=== PATIENT | male | born 1985 | race Caucasian/White ===

== ENCOUNTER 2017-03-21 01:07 | Emergency (ER) | payer OTHER | END 2017-03-21 04:45 | disposition home or self-care (01) | LOC: ER 01:07 | DX: M27.3 Alveolitis of jaws (principal); K08.409 Partial loss of teeth, unspecified cause, unspecified class; Q60.2 Renal agenesis, unspecified; Z88.0 Allergy status to penicillin | CPT/HCPCS: 99070; 99282 ==

== ENCOUNTER 2017-04-08 07:08 | Emergency (ER) | payer OTHER ==
[2017-04-08 07:38] LABS: BLOOD UREA NITROGEN 10 mg/dL (7-18); CALCIUM 9.5 mg/dL (8.7-10.7); CARBON DIOXIDE 23 mmol/L (21-32); CREATININE 0.9 mg/dL (0.6-1.3); GLUCOSE,RANDOM 104 mg/dL (70-99); POTASSIUM 3.4 mmol/L (3.5-5.1); SODIUM 140 mmol/L (136-145)
== END 2017-04-08 08:10 | disposition home or self-care (01) ==
LOC: ER 07:08
PROVIDERS: General Practice
DX: R51 Headache (principal); R11.0 Nausea; I10 Essential (primary) hypertension; R94.6 Abnormal results of thyroid function studies; Z79.899 Other long term (current) drug therapy; Z88.0 Allergy status to penicillin
CPT/HCPCS: 36415; 70450; 80048; 84443; 99283-25

== ENCOUNTER 2017-04-17 15:35 | Emergency (ER) | payer OTHER | END 2017-04-17 20:41 | disposition home or self-care (01) | LOC: ER 15:35 | DX: K08.89 Other specified disorders of teeth and supporting structures (principal); I10 Essential (primary) hypertension; Z88.0 Allergy status to penicillin; Z79.899 Other long term (current) drug therapy | CPT/HCPCS: 99282 ==